=== PATIENT | female | born 1985 | race Caucasian/White ===

== ENCOUNTER 2020-04-15 16:44 | Observation (INO) | payer MEDICAID, SELFPAY ==
[2020-04-15] VITALS (11 sets, daily range): BP systolic 88–104; BP diastolic 35–69; PULSE 43–72; RESP 11–16; TEMP 36.3; O2SAT 98–100; BMI 22.6
--- NOTE | 2020-04-15 17:58 | CTR_ITS ---
PROCEDURE INFORMATION: Exam: CT Head Without Contrast Exam date and time: 04/15/2020 5:59 PM Age: 35 years old Clinical indication: Numbness / parasthesia and speech disturbance and weakness, extremity; Left; Additional info: Slurred speech/left arm numbness x3 days TECHNIQUE: Imaging protocol: Computed tomography of the head without contrast. Radiation optimization: All CT scans at this facility use at least one of these dose optimization techniques: automated exposure control; mA and/or kV adjustment per patient size (includes targeted exams where dose is matched to clinical indication); or iterative reconstruction. COMPARISON: No relevant prior studies available. RADIATION DOSE METRICS: Total DLP (mGy-cm): 740.85 FINDINGS: Brain: Normal. No hemorrhage. Unremarkable white matter. No mass effect. Cerebral ventricles: No ventriculomegaly. Bones/joints: Unremarkable. No acute fracture. Paranasal sinuses: Visualized sinuses are unremarkable. No fluid levels. Mastoid air cells: Visualized mastoid air cells are well aerated. Soft tissues: Unremarkable. CT/CT head wo con* [id number] IMPRESSION: No acute intracranial abnormality. Radiation Dose CTDIVOL = (mGy): DLP = 740.85 (mGy-cm)
--- NOTE | 2020-04-15 20:11 | ECG_ITS ---
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 Measurements Intervals [place] Rate: 41 P: 50 MA: 125 QRS: 78 QRSD: 95 T: 59 QT: 507 QTc: 423 Interpretive Statements SINUS BRADYCARDIA No previous ECG available for comparison Electronically Signed On 04-16-2020 23:44:04 GARDEN CENTER MANAGER by Delfino Ortiz M.D. [id number]
--- NOTE | 2020-04-15 20:12 | XR_ITS ---
WS: [id number] Exam: XR chest 1V portable [id number] Date/Time of Exam: 04/15/2020 8:16 PM Reason For Exam: sob Findings: The lungs are clear and fully expanded. Costophrenic angles are sharp. No infiltrates. Bronchovascula r relief appears normal. Cardiac silhouette is unremarkable. Bony elements are intact. XR/XR chest 1V portable [id number] IMPRESSION: Unremarkable chest radiograph.
--- NOTE | 2020-04-15 20:15 | ED_ITS ---
HPI - Neuro Symptoms/Deficit General: Chief Complaint: Neuro Symptoms/Deficit Stated Complaint: Sent from [facility] Stroke/Slurred Speech/CP Time Seen by Provider: 04/15/20 19:56 Source: patient Mode of arrival: ambulatory Limitations: no limitations History of Present Illness: HPI Narrative: Alejandra is a 35-year-old female here with multiple complaints. Patient states she has been having generalized weakness, chest pain abdominal pain numbness in all extremities and back pain. She states is been going on for days. She states she has had this in the past with exhaustion. She states she has been working a lot. When I walked in the room she was taking pills out of her purse and took a couple pills she states that they were just tramadol's. She denies any fever. Denies any one-sided weakness. Associated symptoms: Reports chest pain and headache(s) Review of Systems Const: Denies: fever(s), chills, body aches or change in appetite Eyes: Denies: blurry vision or eye discomfort ENMT: Denies: throat pain or dental pain Card: Reports: chest pain and palpitations Resp: Denies: dyspnea GI: Reports: abdominal pain and nausea : Denies: dysuria Musc: Reports: neck pain and back pain Skin/Breast: Denies: rash Neuro: Reports: headache(s), numbness in extremities and weakness in extremities Psych: Denies: depression Conrad/Lymph: Denies: easy bruising All/Imm: Denies: urticaria PFSH ED PFSH: Medical History (Updated 04/15/20 @ 23:24 by Jason Starkey MD) Anxiety SVT (supraventricular tachycardia) Tension headache Surgical History (Updated 04/15/20 @ 23:24 by Jason Starkey MD) Hx of cholecystectomy Family History (Updated 04/15/20 @ 23:25 by Jason Starkey MD) Denies family history of Psychiatric illness Social History (Updated 04/15/20 @ 23:26 by Jason Starkey MD) Alcohol intake: never Substance/Drug Use: never Household members: spouse Housing: House Marital status: Current occupational status: employed Current occupation: Registered nurse Physical Exam Const: COMMON NORMALS: no acute distress, patient oriented x3 and healthy appearing HENMT: COMMON NORMALS: normocephalic and atraumatic HEAD & SCALP: normocephalic and atraumatic Eye: COMMON NORMALS: Equal, round and reactive pupils present and EOMs intact bilaterally PUPIL: Yes Equal, round and reactive pupils present Neck/C-Spine: COMMON NORMALS: full ROM and supple Chest: COMMONS NORMALS: normal inspection of the chest and normal palpation of entire chest wall Resp: COMMON NORMALS: normal respiratory effort, No retractions, No use of accessory muscles and clear to auscultation bilaterally AUSCULTATION: clear to auscultation bilaterally Cardio: COMMON NORMALS: regular rate, regular rhythm and No murmurs present (Cardio) RATE: regular rate RHYTHM: regular rhythm GI: COMMON NORMALS: Normal to inspection, nondistended, normoactive bowel sounds present, Soft to palpation, non-tender and no masses PALPATION: Yes Soft to palpation Extremity: COMMON NORMALS: normal to inspection and full ROM Neuro: COMMON NORMALS: patient oriented x3, moves all extremities and no focal motor deficits Psych: COMMON NORMALS: mental status grossly normal, Normal thought process present and cooperative THOUGHT PROCESS: Normal thought process present Skin: COMMON NORMALS: no rashes or lesions noted and no wounds GENERAL SKIN EXAM: no rashes or lesions noted Course Vital Signs: Vital signs: Vital Signs Temperature 97.3 F L 04/15/20 16:51 Pulse Rate 50 L 04/15/20 22:46 Respiratory Rate 12 04/15/20 22:46 Blood Pressure 92/56 04/15/20 22:46 Pulse Oximetry 98 04/15/20 22:46 MDM - Neuro Symptoms/Deficit MDM Narrative: Medical decision making narrative: Alejandra presents here with multiple complaints including headache and abdominal pain. Patient also is concerned she had a TIA. Her head CT here is normal and she has no signs of acute stroke. Patient does have hypotension and bradycardia I believe is likely medication related. She is on atenolol. Her blood pressure is improved here. I spoke to the hospitalist will admit and hold her medicines and see if her bradycardia and hypotension improved. She has no signs of sepsis or acute infection. Lab Data: Labs: Lab Results 04/15/20 04/15/20 04/15/20 Range/Units 20:16 20:16 20:16 WBC 4.2 (4.0-10.0) 10^3/ uL RBC 3.71 L (4.1-5.3) 10^6/u L Hgb 11.5 (11.5-15.3) g/dL Hct 36.2 L (37.0-47.0) % MCV 97.6 (81-99) fL MCH 31.0 (28.0-34.0) pg MCHC 31.8 (30.0-36.0) g/dL RDW 12.3 (12.1-15.1) % Plt Count 144 (130-400) 10^3/c mm MPV 11.6 H (7.4-10.4) fL Neut % (Auto) 22.4 % Lymph % (Auto) 64.3 % [place] % (Auto) 9.8 % Eos % (Auto) 2.6 % Baso % (Auto) 0.7 % Neut # (Auto) 0.94 L* (1.8-7.7) 10^3/u L Lymph # (Auto) 2.7 (0.8-4.8) 10^3/u L [place] # (Auto) 0.4 (0.2-0.9) 10^3/u L Eos # (Auto) 0.1 (0.0-0.8) 10^3/u L Baso # (Auto) 0.0 (0.0-0.1) 10^3/u L Nucleated RBC % (a uto) 0 % Nucleated RBCs # 0.0 /100WBC PT 13.30 (12.1-14.9) SECO NDS INR 0.98 (0.8-1.2) Sodium 143 (136-145) mmol/L Potassium 3.3 L (3.5-5.1) mmol/L Chloride 104 (98-107) mmol/L Carbon Dioxide 30 H (22-29) mmol/L Anion Gap 12.3 (5-19) BUN 9 (6-20) mg/dL Creatinine 0.7 (0.5-0.9) mg/dL GFR Calculation 94.2 (90-130) mL/min Glucose 90 (65-115) mg/dL Calculated Osmolal ity 294 (285-295) mOsm/k g Lactate (0.5-2.2) mmol/L Calcium 8.8 (8.5-10.5) mg/dL Total Bilirubin 0.2 (0.15-1.2) mg/dL AST 20 (0-32) U/L ALT 24 (0-33) U/L Alkaline Phosphata se 69 (35-105) IU/L Troponin T Baselin e (0-10) ng/L Troponin T 120 Min valerie (0-10) ng/L Delta Troponin T (0-10) ABS# Total Protein 6.0 L (6.6-8.7) g/dL Albumin 4.4 (3.5-5.2) g/dL Globulin 1.6 (1.3-4.6) g/dL Lipase 63 H (13-60) U/L 04/15/20 04/15/20 04/15/20 Range/Units 20:16 21:14 22:12 WBC (4.0-10.0) 10^3/ uL RBC (4.1-5.3) 10^6/u L Hgb (11.5-15.3) g/dL Hct (37.0-47.0) % MCV (81-99) fL MCH (28.0-34.0) pg MCHC (30.0-36.0) g/dL RDW (12.1-15.1) % Plt Count (130-400) 10^3/c mm MPV (7.4-10.4) fL Neut % (Auto) % Lymph % (Auto) % [place] % (Auto) % Eos % (Auto) % Baso % (Auto) % Neut # (Auto) (1.8-7.7) 10^3/u L Lymph # (Auto) (0.8-4.8) 10^3/u L [place] # (Auto) (0.2-0.9) 10^3/u L Eos # (Auto) (0.0-0.8) 10^3/u L Baso # (Auto) (0.0-0.1) 10^3/u L Nucleated RBC % (a uto) % Nucleated RBCs # /100WBC PT (12.1-14.9) SECO NDS INR (0.8-1.2) Sodium (136-145) mmol/L Potassium (3.5-5.1) mmol/L Chloride (98-107) mmol/L Carbon Dioxide (22-29) mmol/L Anion Gap (5-19) BUN (6-20) mg/dL Creatinine (0.5-0.9) mg/dL GFR Calculation (90-130) mL/min Glucose (65-115) mg/dL Calculated Osmolal ity (285-295) mOsm/k g Lactate 0.6 (0.5-2.2) mmol/L Calcium (8.5-10.5) mg/dL Total Bilirubin (0.15-1.2) mg/dL AST (0-32) U/L ALT (0-33) U/L Alkaline Phosphata se (35-105) IU/L Troponin T Baselin e 6 (0-10) ng/L Troponin T 120 Min valerie 6.00 (0-10) ng/L Delta Troponin T 0 (0-10) ABS# Total Protein (6.6-8.7) g/dL Albumin (3.5-5.2) g/dL Globulin (1.3-4.6) g/dL Lipase (13-60) U/L Imaging Data^: CT Head: Attestation: I personally reviewed and interpreted this imaging study as follows: Radiologist's impression: [place] [address] CT Scan Report Signed Patient: Alejandra Monique Unit #: [id number] : 1985 Age/Sex: 35 / F ADM Date: 04/15/20 Loc: ER Room/Bed: Attending Dr: Ordering Provider/Ordering MD: Vernon Storm DO Date of Service: 04/15/20 Procedure(s): CT head wo con* [id number] Accession Number(s): [id number] Report Number: [id number] PROCEDURE INFORMATION: Exam: CT Head Without Contrast Exam date and time: 04/15/2020 5:59 PM Age: 35 years old Clinical indication: Numbness / parasthesia and speech disturbance and weakness, extremity; Left; Additional info: Slurred speech/left arm numbness x3 days TECHNIQUE: Imaging protocol: Computed tomography of the head without contrast. Radiation optimization: All CT scans at this facility use at least one of these dose optimization techniques: automated exposure control; mA and/or kV adjustment per patient size (includes targeted exams where dose is matched to clinical indication); or iterative reconstruction. COMPARISON: No relevant prior studies available. RADIATION DOSE METRICS: Total DLP (mGy-cm): 740.85 FINDINGS: Brain: Normal. No hemorrhage. Unremarkable white matter. No mass effect. Cerebral ventricles: No ventriculomegaly. Bones/joints: Unremarkable. No acute fracture. Paranasal sinuses: Visualized sinuses are unremarkable. No fluid levels. Mastoid air cells: Visualized mastoid air cells are well aerated. Soft tissues: Unremarkable. CT/CT head wo con* [id number] IMPRESSION: No acute intracranial abnormality. Radiation Dose CTDIVOL = (mGy): DLP = 740.85 ( CXR: Attestation: I personally reviewed and interpreted this imaging study as follows: My impression: No acute abnormality EKG Data^: EKG 1: Attestation: I personally reviewed and interpreted this EKG as follows: EKG interpretation date: 04/15/20 Interpretation: sinus narayan hr [address] or t wave abnormalities qrs 95 qtc 417 EKG 2: Attestation: I personally reviewed and interpreted this EKG as follows: EKG interpretation date: 04/15/20 EKG interpretation time: 21:13 Interpretation: sinus narayan hr [address] or t wave abnormalities qrs 95 qtc 445 Discharge Plan Discharge Patient Disposition: Admitted As Inpatient Admit Provider: Jason Starkey Clinical Impression: Abdominal pain, Bradycardia Hypotension Qualifiers: Hypotension type: unspecified hypotension type Qualified Code(s): I95.9 - Hypotension, unspecified Headache Qualifiers: Headache type: unspecified Headache chronicity pattern: unspecified pattern Intractability: not intractable Qualified Code(s): R51.9 - Headache, unspecified Condition: Stable Discharge Diet: Advance as tolerated Discharge Activity: Resume usual activity Coding Level of Care Code ED Profiling Machine Set Up Operator for Chg Fwd Exam Comprehensive
[2020-04-15] MEDS: sodium chloride 0.9% 1,000 ML 999 ML IV ×2 (20:29→22:11)
[2020-04-15 20:35] LABS: Basophils % 0.7 %; Eosinophils # 0.1 10^3/uL (0.0-0.8); Eosinophils % 2.6 %; Hematocrit 36.2 % (37.0-47.0); Hemoglobin 11.5 g/dL (11.5-15.3); Lymphocytes # 2.7 10^3/uL (0.8-4.8); Lymphocytes % 64.3 %; Mean Corpuscular HGB Conc 31.8 g/dL (30.0-36.0); Mean Corpuscular Volume 97.6 fL (81-99); Mean Platelet Volume 11.6 fL (7.4-10.4); Monocytes # 0.4 10^3/uL (0.2-0.9); Monocytes % 9.8 %; Neutrophils % 22.4 %; Nucleated Red Blood Cells % 0 %; Platelet Count 144 10^3/cmm (130-400); Red Blood Count 3.71 10^6/uL (4.1-5.3); Red Cell Distribution Width 12.3 % (12.1-15.1); White Blood Count 4.2 10^3/uL (4.0-10.0)
[2020-04-15 20:58] LABS: INR 0.98 (0.8-1.2)
[2020-04-15 21:00] LABS: Alanine Aminotransferase 24 U/L (0-33); Albumin Level 4.4 g/dL (3.5-5.2); Alkaline Phosphatase 69 IU/L (35-105); Anion Gap 12.3 (5-19); Aspartate Amino Transferase 20 U/L (0-32); Blood Urea Nitrogen 9 mg/dL (6-20); Calcium 8.8 mg/dL (8.5-10.5); Carbon Dioxide 30 mmol/L (22-29); Chloride 104 mmol/L (98-107); Globulin 1.6 g/dL (1.3-4.6); Glomerular Filtration Rate 94.2 mL/min (90-130); Glucose 90 mg/dL (65-115); Lipase 63 U/L (13-60); Osmolality Calculated 294 mOsm/kg (285-295); Potassium 3.3 mmol/L (3.5-5.1); Sodium 143 mmol/L (136-145); Total Bilirubin 0.2 mg/dL (0.15-1.2)
[2020-04-15 21:02] LABS: Troponin(5th) Baseline 6 ng/L (0-10)
[2020-04-15 21:45] LABS: Lactate (Lactic Acid level) 0.6 mmol/L (0.5-2.2)
[2020-04-15 21:47] LABS: Neutrophils # 0.94 10^3/uL (1.8-7.7)
[2020-04-15 22:46] LABS: Troponin 5 2HR Delta 0 ABS# (0-10)
--- NOTE | 2020-04-15 23:21 | P.HP_ITS ---
Providers/Chief Complaint Primary Care Provider: Nicholas Montes Chief Complaint: Sent from [facility] Stroke/Slurred Speech/CP History of Present Illness Alejandra Monique is a 35 year old female with previous history of chronic tension headache, presented today with chief complaint of generalized weakness. 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 Patient is stating that she had similar episode in the past, this time she also noticed left-sided shoulder discomfort radiating towards her arm associated with some numbness and tingling. She is denying orthopnea, PND, dysuria, diarrhea, vomiting, recent falls. Patient is stating that she was tested multiple times at her workplace but her drug screen was negative. She told ER physician that she has been taking tramadol which she did not volunteer to me. I questioned her again about tramadol she said yes I take 50 mg and I am supposed to take 7 times a day or maybe 5 times . She is also endorsing taking Klonopin 1 mg 3 times a day for her seizures however she has never been diagnosed with any breakthrough seizures or epilepsy. She takes atenolol 50 mg once a day for SVT. She is denying taking more than usual dosages. She denies use of marijuana, IV drugs, she is denying symptoms of hypothyroidism. No family history of neurological disease. When ER physician entered the room he found her taking some tablets and on questioning she said yes these are trazodone tablets. Diagnosis in the ER revealed normal CBC, hypokalemia, bradycardia sinus bradycardia on EKG prolonged QT interval, blood pressure running soft systolic blood pressure 90s, patient seems very somnolent but arousable and able to mention above HPI however her story is not consistent. Father is also present in the room. I have requested magnesium, TSH and told her that we are going to hold atenolol and tramadol tonight, she seemed very emotionally labile and was in tears when registration person entered the room. Review of Systems Const: Reports: chills, body aches and fatigue; Denies: fever(s) Eyes: Denies: change in vision ENMT: Denies: throat pain Card: Denies: chest pain Resp: Denies: dyspnea GI: Denies: abdominal pain : Denies: flank pain Musc: Denies: neck pain Skin/Breast: Denies: rash Neuro: Reports: weakness in extremities and difficulty walking; Denies: headache(s) Psych: Reports: anxiety and depression Endo: Denies: polyuria Conrad/Lymph: Denies: easy bruising All/Imm: Denies: urticaria Medications/Allergies Allergies Allergy/AdvReac Type Severity Reaction Status Date / Time codeine Allergy ALGY-Difficulty Verified 04/15/20 16:56 Breathing morphine Allergy ALGY-Anaphy Verified 04/15/20 16:55 laxis Sulfa (Sulfonamide Allergy ALGY-Hives Verified 04/15/20 16:55 Antibiotics) PFSH Acute PFSH: Medical History Anxiety SVT (supraventricular tachycardia) Tension headache Surgical History Hx of cholecystectomy Family History Denies family history of Psychiatric illness Social History (Updated 04/16/20 @ 01:07 by Jason Starkey MD) Smoking and tobacco status: current every day smoker cigarettes [ Other cigarette details: Smokes 1 pack/day ] Alcohol intake: never Substance/Drug Use: never Household members: family Housing: House Marital status: Number of children: 5 Current occupational status: employed Current occupation: Registered nurse Vitals/I&O/Wt Last Vital Signs Temp 97.3 F L 04/15/20 16:51 Pulse 50 L 04/15/20 22:46 Resp 12 04/15/20 22:46 BP 92/56 04/15/20 22:46 Pulse Ox 98 04/15/20 22:46 04/15/20 04/15/20 04/16/20 14:59 22:59 06:59 Intake Total 1000 / 1000 Balance 1000 / 1000 Weight last 48 hrs Weight 54.431 kg Physical Exam Narrative: EXAM NARRATIVE: Young female who was very emotionally labile when I entered the room Heart rate in 40s systolic blood pressure in 90s however she is awake verbally redirectable but somnolent S1, S2 sinus bradycardia No signs of heart failure No murmur appreciated Bilateral breath sounds without adventitious rhonchi or crackles No joint abnormality noted No acute respiratory distress bilateral breath sound without adventitious rhonchi or crackles No signs of hypothyroidism No myoclonus noted Scanning speech pattern however no sign of cerebellar stroke When I was listening to her lungs I noticed that she was falling asleep and was not able to keep her head straight Pupils are reactive bilaterally symmetrical No focal deficit was identified No skin rash No edema gangrene ulcer of lower extremity Right ear piercing scar noted Data : 04/15/20 20:16 04/15/20 20:16 A&P Assessment and plan (1) Hypotension: Status: Acute Qualifiers: Hypotension type: unspecified hypotension type Qualified Code(s): I95.9 - Hypotension, unspecified (2) Headache: Status: Acute Qualifiers: Headache chronicity pattern: unspecified pattern Headache type: unspecified Intractability: not intractable Qualified Code(s): R51.9 - H eadache, unspecified (3) Bradycardia: Status: Acute Additional A&P Information Symptomatic bradycardia Her symptoms are fatigue, hypertension She has been taking atenolol She is also taking Klonopin and tramadol for pain and seizure however not able to provide me diagnosis for use of prescribed medications Her drug screen positive for barbiturates and benzodiazepines Hypokalemia noted, will check magnesium and TSH level EKG showing sinus bradycardia no sign of ischemia or infarction or high degree block Hold atenolol and tramadol, QTC prolongation noted which is secondary to bradycardia, we will keep atropine on standby Monitor on telemetry floor Would use atropine if her blood pressure is not responding however currently mean arterial pressure 65-70mmhg No focal neurological deficit however she was not able to keep her head straight during my conversation, does not have typical myasthenia gravis symptoms or Guillain-Corley?, Chronic tension headache She has been taking Fioricet every 2 hours I would like to only use Tylenol for now Regular diet Full code DVT prophylaxis not needed as she is low risk Attestations Medical Necessity Statement*: Anticipating discharge in less than 48 hours continued evaluation for symptomatic bradycardia Time Spent in Patient Care: (>than 50% of time spent in counselling and/or direct pt care on unit) . 45mins Coding Level of Care Code Acute Mechanic Insulator for Chg Fwd Diagnoses Hypotension I95.9 Hypotension type: unspecified hypotension type Headache R51.9 Headache chronicity pattern: unspecified pattern Headache type: unspecified Intractability: not intractable Bradycardia R00.1
[2020-04-15 23:27] LABS: Add Urine Microscopic? NO
[2020-04-15 23:39] LABS: Amphetamines Screen Urine Negative (Negative); Barbiturates Screen Urine Positive (Negative); Benzodiazepines Screen Urine Positive (Negative); Cocaine Screen Urine Negative (Negative); Opiate Screen Urine Negative (Negative); PCP Screen Urine Negative (Negative); THC Screen Urine Negative (Negative)
[2020-04-15 23:40] LABS: Bilirubin Urine Neg (Negative); Blood Urine Neg (Negative); Glucose Urine UA Norm (Normal); Ketones Urine Negative (Negative); Leukocyte Esterase Urine Negative (Negative); Nitrate Urine Negative (Negative); Protein Urine Neg (Negative); Urine Appearance Clear (CLEAR); Urine Color Yellow (Yellow); Urobilinogen Urine Norm (Negative)
[2020-04-16] VITALS (7 sets, daily range): BP systolic 91–120; BP diastolic 47–65; PULSE 44–58; RESP 14–18; TEMP 35.8–37; O2SAT 98–100
--- NOTE | 2020-04-16 00:30 | PC.NURSE ---
When asking patient for med rec, patient states I like to keep my things private. Patient was educated that it is best the doctor knows what medications she is on. Patient states If they decide to keep me tomorrow, then we will worry about it. 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 Patient is drowsy and slow to respond and also frequently uses foul language, however is polite to nurse. Patient states I can't wait to get the hell out of here, then states thank you . When patient found out she had a roommate she stated, fuck my life. Patient frequently makes flippant remarks.
[2020-04-16] MEDS: potassium chloride ER 20 mEq Tablet 40 MEQ PO ×2 (01:24→09:34)
--- NOTE | 2020-04-16 01:27 | PC.NURSE ---
Patient has trouble staying awake while I am talking to her. Patient fell asleep with half eaten food still in her hand.
--- NOTE | 2020-04-16 02:11 | ECG_ITS ---
[facility] Test Date: 2020-04-16 Pat Name: Alejandra Monique Department: Room: 111 Gender: Female Cutter Woodwind Reeds: RASHAUN BRANB: 1985 Requested By: Nikhil Da Silva Order Number: [id number] Jayro MD: Delfino Ortiz M.D. Measurements Intervals [place] Rate: 44 P: -4 CT: 112 QRS: 86 QRSD: 95 T: 59 QT: 465 QTc: 401 Interpretive Statements SINUS BRADYCARDIA WITH SINUS ARRHYTHMIA WITH SHORT CT INTERVAL Compared to ECG 04/15/2020 21:13:[address] interval now present Electronically Signed On 04-17-2020 0:00:08 UNIT EDUCATOR by Delfino Ortiz M.D. [id number]
[2020-04-16 04:34] LABS: Anion Gap 8.5 (5-19); Blood Urea Nitrogen 9 mg/dL (6-20); Calcium 8.2 mg/dL (8.5-10.5); Carbon Dioxide 27 mmol/L (22-29); Chloride 111 mmol/L (98-107); Glomerular Filtration Rate 112.5 mL/min (90-130); Glucose 106 mg/dL (65-115); Magnesium 2.1 mg/dL (1.7-2.3); Osmolality Calculated 295 mOsm/kg (285-295); Potassium 3.5 mmol/L (3.5-5.1); Sodium 143 mmol/L (136-145)
[2020-04-16 04:41] LABS: Thyroid Stimulating Hormone 0.97 uIU/mL (0.27-4.20)
--- NOTE | 2020-04-16 10:24 | P.DS_ITS ---
Discharge Providers Date of Admission: 04/16/20 01:11 Date of Discharge: April 16, 2020 Attending Provider at Admission: Jason Starkey MD Attending Provider at Discharge: Conrado Garza MD Primary Care Provider: Nicholas Montes Diagnoses at Discharge Discharge Diagnosis (1) Hypotension: Status: Acute Qualifiers: Hypotension type: unspecified hypotension type Qualified Code(s): I95.9 - Hypotension, unspecified (2) Headache: Status: Acute Qualifiers: Headache chronicity pattern: unspecified pattern Headache type: unspec ified Intractability: not intractable Qualified Code(s): R51.9 - Headache, unspecified (3) Bradycardia: Status: Acute Reason for Visit Reason for Visit: Sent from [facility] Stroke/Slurred Speech/CP Hospital Course Hospital Course Alejandra is a 35-year-old white female who presented to the hospital with complains of generalized weakness, and some slurred speech. Her heart rate was in the 40s, and apparently she was slurring some speech. She was on multiple sedating medications. She is on atenolol for SVT. She takes Klonopin, scheduled as long as Fioricet around 5-6 a day and tramadol 5-6 a day. After admission her heart rate was noted to be 40s to 50s overnight, sinus. Blood pressure was adequate. When I evaluated her she was around 65-70 on telemetry. In review of telemetry from last night there were no arrhythmias that were concerning. She was able to walk in the hospital room without any significant dizziness. She had no slurred speech. We discussed multiple medications could have caused her presentation. I recommended that she discontinue the tramadol as she reports she has had occasional seizures in the past and reduce her dose of atenolol to 25 mg which from discussing with nursing this is a as needed medication. She reports she has lots of medical conditions such as chronic headaches for which she takes atenolol, abdominal discomfort consistent with irritable bowel, chronic chest discomfort(she had a troponin this hospital stay that was negative), Benadryl for anxiety. I recommended that she try to reduce all of these as needed medications as they may be contributing to her presentation. I will arrange for her to see cardiology in 2 weeks for history of SVT. She will follow-up with her primary care provider in 3 to 4 days. She will keep track of her blood pressure and heart rate. She will try to reduce the use of her as needed medications, and stop the tramadol. Her dose of atenolol that she uses as needed will be significantly reduced by half. TSH and magnesium were checked in the hospital and normal. Potassium was slightly low and supplemented. CT head and chest x-ray were unremarkable. Physical Exam Narrative: EXAM NARRATIVE: General exam is no apparent distress Cardiovascular regular in rhythm without murmur Lungs clear Abdomen is soft, positive bowel sounds Extremities no cyanosis clubbing or edema Discharge Data Data Completed and Pending: Completed Studies During Hospitalization Category Date Time Status CT head wo con* 7 [id number] Urgent Cat Scan 04/15/20 17:58 Completed XR chest 1V franny ble [id number] Stat Exams 04/15/20 20:12 Completed Labs from last 24 hours 04/16/20 04/16/20 04/15/20 02:51 02:51 23:06 WBC RBC Hgb Hct MCV MCH MCHC RDW Plt Count MPV Neut % (Auto) Lymph % (Auto) Bonner % (Auto) Eos % (Auto) Baso % (Auto) Neut # (Auto) Lymph # (Auto) Bonner # (Auto) Eos # (Auto) Baso # (Auto) Nucleated RBC % (a uto) Nucleated RBCs # PT INR Sodium 143 Potassium 3.5 Chloride 111 H Carbon Dioxide 27 Anion Gap 8.5 BUN 9 Creatinine 0.6 GFR Calculation 112.5 Glucose 106 Calculated Osmolal ity 295 Lactate Calcium 8.2 L Phosphorus 3.0 Magnesium 2.1 Total Bilirubin AST ALT Alkaline Phosphata se Troponin T Baselin e Troponin T 120 Min [place] Troponin T Total Protein Albumin Globulin Lipase TSH 0.97 Urine Color Urine Appearance Urine pH Ur Specific Gravit y Urine Protein Urine Glucose (UA) Urine Ketones Urine Blood Urine Nitrate Urine Bilirubin Urine Urobilinogen Ur Leukocyte Bertha ase Urine Opiates Scre en Negative Ur Barbiturates Sc reen Positive H Ur Phencyclidine S crn Negative Ur Amphetamines Sc reen Negative U Benzodiazepines Scrn Positive H Urine Cocaine Scre en Negative U Marijuana (THC) Screen Negative 04/15/20 04/15/20 04/15/20 23:06 22:12 21:14 WBC RBC Hgb Hct MCV MCH MCHC RDW Plt Count MPV Neut % (Auto) Lymph % (Auto) Bonner % (Auto) Eos % (Auto) Baso % (Auto) Neut # (Auto) Lymph # (Auto) Bonner # (Auto) Eos # (Auto) Baso # (Auto) Nucleated RBC % (a uto) Nucleated RBCs # PT INR Sodium Potassium Chloride Carbon Dioxide Anion Gap BUN Creatinine GFR Calculation Glucose Calculated Osmolal ity Lactate 0.6 Calcium Phosphorus Magnesium Total Bilirubin AST ALT Alkaline Phosphata se Troponin T Baselin e Troponin T 120 Min [place] 6.00 Delta Troponin T 0 Total Protein Albumin Globulin Lipase TSH Urine Color Yellow Urine Appearance Clear Urine pH 5.0 Ur Specific Gravit y 1.010 Urine Protein Neg Urine Glucose (UA) Norm Urine Ketones Negative Urine Blood Neg Urine Nitrate Negative Urine Bilirubin Neg Urine Urobilinogen Norm Ur Leukocyte Bertha ase Negative Urine Opiates Scre en Ur Barbiturates Sc reen Ur Phencyclidine S crn Ur Amphetamines Sc reen U Benzodiazepines Scrn Urine Cocaine Scre en U Marijuana (THC) Screen 04/15/20 04/15/20 04/15/20 20:16 20:16 20:16 WBC RBC Hgb Hct MCV MCH MCHC RDW Plt Count MPV Neut % (Auto) Lymph % (Auto) Bonner % (Auto) Eos % (Auto) Baso % (Auto) Neut # (Auto) Lymph # (Auto) Bonner # (Auto) Eos # (Auto) Baso # (Auto) Nucleated RBC % (a uto) Nucleated RBCs # PT 13.30 INR 0.98 Sodium 143 Potassium 3.3 L Chloride 104 Carbon Dioxide 30 H Anion Gap 12.3 BUN 9 Creatinine 0.7 GFR Calculation 94.2 Glucose 90 Calculated Osmolal ity 294 Lactate Calcium 8.8 Phosphorus Magnesium Total Bilirubin 0.2 AST 20 ALT 24 Alkaline Phosphata se 69 Troponin T Baselin e 6 Troponin T 120 Min [place] Troponin T Total Protein 6.0 L Albumin 4.4 Globulin 1.6 Lipase 63 H TSH Urine Color Urine Appearance Urine pH Ur Specific Gravit y Urine Protein Urine Glucose (UA) Urine Ketones Urine Blood Urine Nitrate Urine Bilirubin Urine Urobilinogen Ur Leukocyte Bertha ase Urine Opiates Scre en Ur Barbiturates Sc reen Ur Phencyclidine S crn Ur Amphetamines Sc reen U Benzodiazepines Scrn Urine Cocaine Scre en U Marijuana (THC) Screen 04/15/20 20:16 WBC 4.2 RBC 3.71 L Hgb 11.5 Hct 36.2 L MCV 97.6 MCH 31.0 MCHC 31.8 RDW 12.3 Plt Count 144 MPV 11.6 H Neut % (Auto) 22.4 Lymph % (Auto) 64.3 Bonner % (Auto) 9.8 Eos % (Auto) 2.6 Baso % (Auto) 0.7 Neut # (Auto) 0.94 L* Lymph # (Auto) 2.7 Bonner # (Auto) 0.4 Eos # (Auto) 0.1 Baso # (Auto) 0.0 Nucleated RBC % (a uto) 0 Nucleated RBCs # 0.0 PT INR Sodium Potassium Chloride Carbon Dioxide Anion Gap BUN Creatinine GFR Calculation Glucose Calculated Osmolal ity Lactate Calcium Phosphorus Magnesium Total Bilirubin AST ALT Alkaline Phosphata se Troponin T Baselin e Troponin T 120 Min [place] Troponin T Total Protein Albumin Globulin Lipase TSH Urine Color Urine Appearance Urine pH Ur Specific Gravit y Urine Protein Urine Glucose (UA) Urine Ketones Urine Blood Urine Nitrate Urine Bilirubin Urine Urobilinogen Ur Leukocyte Bertha ase Urine Opiates Scre en Ur Barbiturates Sc reen Ur Phencyclidine S crn Ur Amphetamines Sc reen U Benzodiazepines Scrn Urine Cocaine Scre en U Marijuana (THC) Screen Vitals: Last Vital Signs Temp 96.5 F L 04/16/20 08:00 Pulse 44 L 04/16/20 08:00 Resp 14 04/16/20 08:00 BP 110/65 04/16/20 08:00 Pulse Ox 99 04/16/20 08:00 Discharge Plan Discharge Patient Disposition: Home Condition: Stable Prescriptions: New atenolol 25 mg tablet 25 mg PO DAILY PRN (Reason: palpitations) Qty: 30 RF: 0 Continued dicyclomine 20 mg tablet 20 - 40 mg PO TID PRN (Reason: Cramps) RF: 0 vgbgsuibgr-bzebtxrcvezch-lbvs 50-325-40 mg Tablet 1 tab PO Q4H PRN (Reason: unknown) RF: 0 zolpidem 10 mg tablet 10 mg PO BEDTIME PRN (Reason: Insomnia) RF: 0 ProAir HFA 90 mcg/actuation HFA aerosol inhaler 2 puff INHALATION Q6H PRN (Reason: Shortness Of Breath) RF: 0 Benadryl 25 mg Capsule 25 mg PO PRN (Reason: Allergy Symptoms) RF: 0 clonazepam 2 mg tablet 1 mg PO TID RF: 0 Discontinued atenolol 50 mg tablet 50 mg PO PRN RF: 0 tramadol 50 mg tablet 50 mg PO TID PRN (Reason: Headache) RF: 0 Discharge Orders: Discharge Order (Routine); Ordered 04/16/20 Ordered By: Conrado Garza Referrals: Nicholas Montes [Primary Care Provider] - 4-7 days Jason Madrid MD [Physician] - 2 weeks (History of SVT) Discharge Diet: Advance as tolerated Discharge Activity: Resume usual activity Activity Restrictions/Additional Instructions: Keep track of heart rate, blood pressure to report her primary care provider as well as cardiology which she will be referred to. Do not take tramadol as this may lower seizure threshold. Note that your atenolol dose has been decreased to 25 mg once daily. Discharge Attestations Time Spent in Discharge Care*: greater than 30 min Quality Metrics Clinical Quality Measures During this hospital stay, did patient experience: None Coding Level of Care Code Acute Senior Controls Engineer for g Fwd Diagnoses Hypotension I95.9 Hypotension type: unspecified hypotension type Headache R51.9 Headache chronicity pattern: unspecified pattern Headache type: unspecified Intractability: not intractable Bradycardia R00.1
--- NOTE | 2020-04-16 11:32 | PC.NURSE ---
Discharge instructions given per the physicians's orders. Patient verbalized understanding of teaching and did not have any further questions. IV has been removed. Patient dressed self. No further needs identified at this time.
--- NOTE | 2020-04-17 15:33 | PC.RESP ---
Smoking Cessation information sent to patient.
== END 2020-04-16 11:45 | disposition home or self-care (01) ==
LOC: ER 23:22 → CSU 04-16 06:08
PROVIDERS: Admitting Provider Internal Medicine; Emergency Provider Emergency Medicine; PCP Family Medicine; Visit Provider Internal Medicine
DX: I95.9 Hypotension, unspecified (principal); R51.9 Headache, unspecified; R00.1 Bradycardia, unspecified; F17.210 Nicotine dependence, cigarettes, uncomplicated
CPT/HCPCS: 12345; 36415; 70450; 71045; 80048; 80053; 80306; 81003; 83605; 83690; 83735; 84100; 84443; 84484; 85025; 85610; 93005; 96360; 96361; 99283; 99285; G0378; J7030

== ENCOUNTER 2020-05-20 15:06 | Outpatient (CLI) | payer MEDICAID, SELFPAY ==
--- NOTE | 2020-05-20 15:00 | USCV_ITS ---
Alejandra Monique Age: 35 Gender: F : 1985 Exam Date: 05/20/2020 15:40 Ordering Phys: Jason Madrid MD ([email or web address]) Technologist: Iliana Jay Exam Location: [facility] Indication: SOB/CP BP: 112 / 63 HR: 82 Rhythm: Sinus Technical Quality: Good MEASUREMENTS (Male / Female) Normal Values 2D ECHO LV Diastolic Diameter PLAX 4.8 cm 4.2 - 5.9 / 3.9 - 5.3 cm LV Systolic Diameter PLAX 3.5 cm LV Chamber Size 4.2 cm IVS Diastolic Thickness 1.0 cm 0.6 - 1.0 / 0.6 - 0.9 cm IVS Systolic Thickness 1.1 cm LVPW Diastolic Thickness 0.7 cm 0.6 - 1.0 / 0.6 - 0.9 cm LVPW Systolic Thickness 1.2 cm RV Chamber Size 2.6 cm LVOT Diameter 2.0 cm LV Ejection Fraction 2D Teich 51.7 % LV Ejection Fraction MOD 2C 77.3 % LV Ejection Fraction 2C AL 79.1 % LA Diameter 2.1 cm LA Width 3.5 cm LA Height 3.7 cm RA Width 2.9 cm RA Height 3.4 cm M-MODE LV Diastolic Diameter MM 4.4 cm 4.2 - 5.9 / 3.9 - 5.3 cm LV Systolic Diameter MM 2.6 cm LV Ejection Fraction MM Teich 73.5 % IVS Diastolic Thickness MM 1.5 cm 0.6 - 1.0 / 0.6 - 0.9 cm IVS Systolic Thickness MM 1.5 cm LVPW Diastolic Thickness MM 0.8 cm 0.6 - 1.0 / 0.6 - 0.9 cm LVPW Systolic Thickness MM 1.3 cm RV Diastolic Diameter MM 1.2 cm Aortic Annulus Diameter 2.8 cm LA Ao Ratio MM 0.9 MV E Point Septal Separation 0.5 cm DOPPLER AV Peak Velocity 137.0 cm/s LVOT Peak Velocity 107.0 cm/s AV Area Cont Eq vti 2.1 cm squared AV Area Cont Eq pk 2.5 cm squared MV Area PHT 4.3 cm squared Mitral E to A Ratio 1.1 MV E' Velocity 48.0 cm/s Mitral E to MV E' Ratio 5.3 Mitral E to LV E' Lateral Ratio 4.6 Mitral E to LV E' Septal Ratio 6.2 TR Peak Velocity 202.0 cm/s TR Peak Gradient 16.3 mmHg TV Peak E Velocity 63.0 cm/s Right Atrial Pressure 3.0 mmHg Pulmonary Artery Systolic Pressu 19.3 mmHg PV Peak Velocity 69.0 cm/s RV Acceleration Time 0.1 s RV Ejection Time 0.3 s RV AcT/ET 0.4 FINDINGS Left Ventricle Normal left ventricular cavity size. Normal left ventricular systolic function. Left ventricular ejection fraction is estimated at 60 %. Grade I/IV diastolic dysfunction (abnormal relaxation filling pattern), normal to mildly elevated filling pressures. Right Ventricle The right ventricle is normal in size and function. Right Atrium The right atrium is normal in size. Left Atrium The left atrium is normal in size. Mitral Valve Structurally normal mitral valve without significant stenosis or prolapse. There is no mitral regurgitation. Aortic Valve Moderate aortic valve calcification. No aortic valve stenosis. No aortic valve regurgitation. Tricuspid Valve Structurally normal tricuspid valve without significant stenosis or regurgitation. Pulmonary artery systolic pressure is normal. Pulmonic Valve Structurally normal pulmonic valve without significant stenosis. There is no pulmonic regurgitation. Pericardium Normal pericardium without effusion. Aorta Normal ascending aorta dimension. CONCLUSIONS 1-Normal left ventricular cavity size. Normal left ventricular systolic function. Left ventricular ejection fraction is estimated at 60 %. Grade I/IV diastolic dysfunction (abnormal relaxation filling pattern), normal to mildly elevated filling pressures. 2-No significant valve abnormalities. 3-There is no pericardial effusion. 4-Pulmonary artery systolic pressure is within normal limits. 5-Right atrial pressure is around 5 mm of mercury. 6-There are no prior echocardiogram studies to compare. Jason Madrid MD (Electronically Signed) Final Date: 20 May 2020 18:22 S
== END 2020-05-20 15:07 | disposition home or self-care (01) ==
PROVIDERS: PCP Family Medicine; Visit Provider Internal Medicine Cardiovascular Disease
DX: R06.02 Shortness of breath (principal); R07.9 Chest pain, unspecified
CPT/HCPCS: 93306